=== PATIENT | male | born 1935 | race Caucasian/White ===

== ENCOUNTER 2017-12-12 21:07 | Emergency (ER) | payer OTHER ==
[~2017-12-12] VITALS: Ht 167.6 cm; Wt 62.6 kg
[2017-12-12] MEDS ORDERED: SYNTHROID50 MCG (21:19)
[2017-12-12] MEDS ORDERED: PANADOL EXTRA500 MG (21:20)
[2017-12-12] MEDS ORDERED: CENTRUM ADULTS1 EACH (21:21)
[2017-12-13] MEDS ORDERED: CIPRO500 MG PO (06:14)
== END 2017-12-13 06:27 | disposition home or self-care (01) ==
LOC: ER 21:07
DX: N39.0 Urinary tract infection, site not specified (principal)